=== PATIENT | female | born 1955 | race American Indian/Alaskan Native ===

== ENCOUNTER 2017-07-14 10:39 | Emergency (ER) | payer OTHER, BC ==
[2017-07-14 10:50] VITALS: TEMP 98.4
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
[2017-07-14 11:52] VITALS: RESP 16
[2017-07-14 12:35] VITALS: BP 143/77; PULSE 88; O2SAT 95
== END 2017-07-14 12:33 | disposition home or self-care (01) ==
LOC: ED 10:39
DX: F41.9 Anxiety disorder, unspecified (principal); E11.9 Type 2 diabetes mellitus without complications; I50.9 Heart failure, unspecified; I10 Essential (primary) hypertension